=== PATIENT | female | born 1965 | race African-American/Black ===

== ENCOUNTER 2019-10-18 11:24 | Inpatient (IN) ==
[2019-10-18 13:04] LABS: Basophils % 0.2 % (0.0-0.8); Hematocrit 41.1 VOL% (35.7-47.0); Hemoglobin 12.9 GM/DL (12.0-16.0); Immature Granulocytes % 0.9 %; Immature Granulocytes Absolute 0.05 #; Lymphocytes # 1.2 10*3/uL (1.4-4.0); Lymphocytes % 22.5 % (21.3-54.2); Mean Corpuscular HGB Conc 31.4 GM/DL (32-36); Mean Corpuscular Volume 95.1 FL (87-102); Mean Platelet Volume 10.5 FL (9.6-12.0); Monocytes % 4.2 % (1.7-12.7); Neutrophils % 72.2 % (38.7-73.9); Platelet Count 247 T/CUMM (130-400); Red Blood Count 4.32 MC/CUMM (3.8-5.5); Red Cell Distribution Width 15.2 % (9.3-17.3); White Blood Count 5.3 T/CUMM (4-12)
[2019-10-18 13:16] LABS: Alanine Aminotransferase 40 U/L (13-56); Albumin 3.4 G/DL (3.4-5.0); Alkaline Phosphatase 69 U/L (45-117); Aspartate Amino Transferase 47 U/L (0-37); Blood Urea Nitrogen 10 MG/DL (7-18); Calcium 8.8 MG/DL (8.5-10.1); Estimated Glom Filtration Rate 80 ML/MIN; Glucose 102 MG/DL (74-106); Osmolality,Calculated 271.8 MOS/KG (273-304); Total Protein 8.9 G/DL (6.4-8.3); Troponin I < 0.015 NG/ML (0.00-0.045)
[2019-10-18] MEDS ORDERED: SODIUM CHLORIDE 0.9% 1,000 ML IV STA (13:35)
[2019-10-18] MEDS ORDERED: LACTATED RINGERS 1,000 ML IV ONE (13:47)
[2019-10-18] MEDS ORDERED: DEXTROSE 10% 250 ML BAG IV PRN (14:29)
[2019-10-18] MEDS ORDERED: ONDANSETRON 4 MG/2 ML VIAL IV PRN (14:29)
[2019-10-18] MEDS ORDERED: GLUCAGON 1 MG VIAL IM PRN (14:29)
[2019-10-18] MEDS ORDERED: DOCUSATE SODIUM 100 MG CAPSULE PO PRN (14:29)
[2019-10-18] MEDS ORDERED: guaiFENesin/DM ER 600-30 MG TABLET PO PRN (14:29)
[2019-10-18] MEDS ORDERED: POTASSIUM CHLORIDE 20 MEQ TABLET PO STA (14:43)
[2019-10-18 15:16] LABS: ABG Base Excess 3.2 MMOL/L (-2.5-2.5); ABG Oxygen Saturation 84.8 % (95-100); ABG PH 7.468 (7.35-7.45); ABG PO2 49.6 MM HG (80-95); ABG TCO2 23.5 MMOL/L (23-27)
[2019-10-18] MEDS: PANTOPRAZOLE 40 MG TABLET PO SCH (18:00)
[2019-10-18] MEDS: SODIUM CHLORIDE 0.9% 1,000 ML IV SCH (19:09)
[2019-10-18] MEDS: ATORVASTATIN 10 MG TABLET PO SCH (22:42)
[2019-10-18] MEDS: ACETAMINOPHEN 325 MG TABLET PO PRN (22:42)
[2019-10-18] MEDS: ENOXAPARIN 40 MG/0.4 ML SYRINGE SUBCUT SCH (22:43)
[2019-10-19 05:09] LABS: Basophils % 0.2 % (0.0-0.8); Hemoglobin 11.1 GM/DL (12.0-16.0); Immature Granulocytes % 0.9 %; Immature Granulocytes Absolute 0.05 #; Lymphocytes # 2.2 10*3/uL (1.4-4.0); Lymphocytes % 39.9 % (21.3-54.2); Mean Corpuscular HGB Conc 31.7 GM/DL (32-36); Mean Corpuscular Volume 93.3 FL (87-102); Mean Platelet Volume 9.7 FL (9.6-12.0); Monocytes % 4.8 % (1.7-12.7); Neutrophils % 54.2 % (38.7-73.9); Platelet Count 239 T/CUMM (130-400); Red Blood Count 3.75 MC/CUMM (3.8-5.5); Red Cell Distribution Width 15.3 % (9.3-17.3); White Blood Count 5.4 T/CUMM (4-12)
[2019-10-19 05:28] LABS: Albumin 2.7 G/DL (3.4-5.0); Bilirubin,Total 0.5 MG/DL (0.2-1.0); Osmolality,Calculated 278.4 MOS/KG (273-304); Total Protein 7.4 G/DL (6.4-8.3)
[2019-10-19] MEDS: SODIUM CHLORIDE 0.9% 1,000 ML IV SCH ×2 (06:25→09:27)
[2019-10-19] MEDS ORDERED: POTASSIUM CHLORIDE 20 MEQ TABLET PO ONE (07:53)
[2019-10-19] MEDS: cefTRIAXone 1,000 MG in SYRINGE 1 EACH IV SCH (09:00)
[2019-10-19] MEDS ORDERED: AZITHROMYCIN INJ 500 MG in SODIUM CHLORIDE 0.9% 250 ML IV SCH (09:00)
[2019-10-19] MEDS: PANTOPRAZOLE 40 MG TABLET PO SCH (09:24)
[2019-10-19] MEDS: METOPROLOL TARTRATE 25 MG TABLET PO SCH (09:24)
[2019-10-19] MEDS: ASPIRIN EC 81 MG TABLET PO SCH (09:24)
[2019-10-19] MEDS: LISINOPRIL/HCTZ 20-12.5 MG TABLET PO SCH (09:24)
[2019-10-19] MEDS: ENOXAPARIN 40 MG/0.4 ML SYRINGE SUBCUT SCH (20:58)
[2019-10-19] MEDS: ATORVASTATIN 10 MG TABLET PO SCH (20:58)
[2019-10-20] MEDS ORDERED: VECURONIUM 10 MG VIAL IV ONE (01:55)
[2019-10-20] MEDS ORDERED: ETOMIDATE 20 MG/10 ML VIAL IV ONE (01:56)
[2019-10-20] MEDS: SODIUM CHLORIDE 0.9% 1,000 ML IV SCH ×5 (02:03→19:00)
[2019-10-20 03:58] LABS: Basophils % 0.1 % (0.0-0.8); Hematocrit 34.9 VOL% (35.7-47.0); Hemoglobin 11.1 GM/DL (12.0-16.0); Immature Granulocytes % 1.2 %; Immature Granulocytes Absolute 0.08 #; Lymphocytes % 30.2 % (21.3-54.2); Mean Corpuscular HGB Conc 31.8 GM/DL (32-36); Mean Corpuscular Volume 96.1 FL (87-102); Mean Platelet Volume 9.4 FL (9.6-12.0); Monocytes % 5.2 % (1.7-12.7); Neutrophils % 63.3 % (38.7-73.9); Platelet Count 302 T/CUMM (130-400); Red Blood Count 3.63 MC/CUMM (3.8-5.5); Red Cell Distribution Width 15.2 % (9.3-17.3); White Blood Count 6.8 T/CUMM (4-12)
[2019-10-20 04:23] LABS: Albumin 2.6 G/DL (3.4-5.0); Bilirubin,Total 0.4 MG/DL (0.2-1.0); Calcium 8.4 MG/DL (8.5-10.1); Osmolality,Calculated 279.4 MOS/KG (273-304); Total Protein 7.5 G/DL (6.4-8.3)
[2019-10-20 06:24] LABS: Apearance,Urine Slightly Hazy (Clear); Bacteria,Urine Occasional /HPF (Few); Bilirubin,Urine Negative (Negative); Blood, Urine Small mg/dL (Negative); Glucose,Urine (UA) Negative (Negative); Ketones,Urine 20 mg/dL (Negative); Mucus,Urine Occasional /LPF (Occasional); Nitrite,Urine Negative (Negative); Protein,Urine 30 MG/DL; RBC,Urine 8 /HPF (0-4); Squamous Epithelial Cell,Urine Occasional /HPF (0-10); Urine Color Yellow (Yellow); Urine Specific Gravity 1.017 (1.001-1.035); Urine Urobilinogen < 2.0 EU/DL (0.2-1.0); WBC,Urine 157 /HPF (0-6)
[2019-10-20] MEDS: ASPIRIN EC 81 MG TABLET PO SCH (09:25)
[2019-10-20] MEDS: PANTOPRAZOLE 40 MG TABLET PO SCH (09:25)
[2019-10-20] MEDS: METOPROLOL TARTRATE 25 MG TABLET PO SCH (09:25)
[2019-10-20] MEDS: LISINOPRIL/HCTZ 20-12.5 MG TABLET PO SCH (09:25)
[2019-10-20] MEDS: cefTRIAXone 1,000 MG in SYRINGE 1 EACH IV SCH (09:26)
[2019-10-20] MEDS: AZITHROMYCIN 250 MG TABLET PO SCH (09:26)
[2019-10-20] MEDS: POTASSIUM CHLORIDE 20 MEQ TABLET PO PRN ×4 (09:26→17:39)
[2019-10-20] MEDS: hydrALAZINE 20 MG/1 ML VIAL IV PRN (17:39)
[2019-10-20] MEDS: ACETAMINOPHEN 325 MG TABLET PO PRN (20:00)
[2019-10-20] MEDS: ATORVASTATIN 10 MG TABLET PO SCH (21:14)
[2019-10-20] MEDS: ENOXAPARIN 40 MG/0.4 ML SYRINGE SUBCUT SCH (21:14)
[2019-10-20] MEDS: ZALEPLON 5 MG CAPSULE PO PRN (21:14)
[2019-10-21 04:48] LABS: Basophils % 0.2 % (0.0-0.8); Hematocrit 35.2 VOL% (35.7-47.0); Hemoglobin 11.2 GM/DL (12.0-16.0); Immature Granulocytes % 1.7 %; Immature Granulocytes Absolute 0.14 #; Lymphocytes # 1.7 10*3/uL (1.4-4.0); Lymphocytes % 20.6 % (21.3-54.2); Mean Corpuscular HGB Conc 31.8 GM/DL (32-36); Mean Corpuscular Volume 95.1 FL (87-102); Mean Platelet Volume 9.4 FL (9.6-12.0); Monocytes % 4.5 % (1.7-12.7); Platelet Count 364 T/CUMM (130-400); Red Cell Distribution Width 15.1 % (9.3-17.3); White Blood Count 8.4 T/CUMM (4-12)
[2019-10-21 04:58] LABS: Albumin 2.3 G/DL (3.4-5.0); Bilirubin,Total 0.7 MG/DL (0.2-1.0); Calcium 8.6 MG/DL (8.5-10.1); Osmolality,Calculated 273.7 MOS/KG (273-304); Total Protein 7.3 G/DL (6.4-8.3)
[2019-10-21] MEDS: SODIUM CHLORIDE 0.9% 1,000 ML IV SCH ×2 (05:34→08:10)
[2019-10-21] MEDS: PANTOPRAZOLE 40 MG TABLET PO SCH (08:03)
[2019-10-21] MEDS: LISINOPRIL/HCTZ 20-12.5 MG TABLET PO SCH (08:03)
[2019-10-21] MEDS: cefTRIAXone 1,000 MG in SYRINGE 1 EACH IV SCH (08:03)
[2019-10-21] MEDS: METOPROLOL TARTRATE 25 MG TABLET PO SCH (08:03)
[2019-10-21] MEDS: ASPIRIN EC 81 MG TABLET PO SCH (08:03)
[2019-10-21] MEDS: AZITHROMYCIN 250 MG TABLET PO SCH (08:06)
[2019-10-21] MEDS: hydrALAZINE 20 MG/1 ML VIAL IV PRN (08:23)
[2019-10-21] MEDS ORDERED: FUROSEMIDE 40 MG/4 ML VIAL IV ONE (14:00)
[2019-10-21] MEDS: ATORVASTATIN 10 MG TABLET PO SCH (20:01)
[2019-10-21] MEDS: ENOXAPARIN 40 MG/0.4 ML SYRINGE SUBCUT SCH (20:01)
[2019-10-21] MEDS: HYDROXYCHLOROQUINE 200 MG TABLET PO SCH (20:02)
[2019-10-22 04:40] LABS: Basophils % 0.1 % (0.0-0.8); Hematocrit 37.8 VOL% (35.7-47.0); Hemoglobin 12.5 GM/DL (12.0-16.0); Immature Granulocytes % 1.5 %; Immature Granulocytes Absolute 0.13 #; Lymphocytes # 1.7 10*3/uL (1.4-4.0); Lymphocytes % 19.4 % (21.3-54.2); Mean Corpuscular HGB Conc 33.1 GM/DL (32-36); Mean Corpuscular Volume 90.6 FL (87-102); Mean Platelet Volume 9.8 FL (9.6-12.0); Monocytes % 4.5 % (1.7-12.7); Neutrophils % 74.5 % (38.7-73.9); Platelet Count 455 T/CUMM (130-400); Red Blood Count 4.17 MC/CUMM (3.8-5.5); Red Cell Distribution Width 15.1 % (9.3-17.3)
[2019-10-22 05:04] LABS: Osmolality,Calculated 277.5 MOS/KG (273-304)
[2019-10-22] MEDS: AZITHROMYCIN 250 MG TABLET PO SCH (09:30)
[2019-10-22] MEDS: LISINOPRIL/HCTZ 20-12.5 MG TABLET PO SCH (09:30)
[2019-10-22] MEDS: HYDROXYCHLOROQUINE 200 MG TABLET PO SCH ×2 (09:30→20:14)
[2019-10-22] MEDS: ASPIRIN EC 81 MG TABLET PO SCH (09:30)
[2019-10-22] MEDS: PANTOPRAZOLE 40 MG TABLET PO SCH (09:30)
[2019-10-22] MEDS: cefTRIAXone 1,000 MG in SYRINGE 1 EACH IV SCH (09:45)
[2019-10-22] MEDS: POTASSIUM CHLORIDE 20 MEQ TABLET PO PRN ×2 (12:37→18:29)
[2019-10-22] MEDS: ENOXAPARIN 40 MG/0.4 ML SYRINGE SUBCUT SCH (20:14)
[2019-10-22] MEDS: ATORVASTATIN 10 MG TABLET PO SCH (20:14)
[2019-10-22] MEDS: ACETAMINOPHEN 325 MG TABLET PO PRN (20:20)
[2019-10-22] MEDS: ZALEPLON 5 MG CAPSULE PO PRN (22:59)
[2019-10-23 01:53] LABS: Basophils % 0.2 % (0.0-0.8); Hematocrit 35.5 VOL% (35.7-47.0); Hemoglobin 11.6 GM/DL (12.0-16.0); Immature Granulocytes % 2.1 %; Lymphocytes # 1.7 10*3/uL (1.4-4.0); Lymphocytes % 17.2 % (21.3-54.2); Mean Corpuscular HGB Conc 32.7 GM/DL (32-36); Mean Corpuscular Volume 92.2 FL (87-102); Mean Platelet Volume 9.5 FL (9.6-12.0); Monocytes % 4.6 % (1.7-12.7); Neutrophils % 75.9 % (38.7-73.9); Platelet Count 458 T/CUMM (130-400); Red Blood Count 3.85 MC/CUMM (3.8-5.5); White Blood Count 9.6 T/CUMM (4-12)
[2019-10-23 02:11] LABS: Calcium 8.9 MG/DL (8.5-10.1)
[2019-10-23] MEDS: POTASSIUM CHLORIDE 20 MEQ TABLET PO PRN (04:45)
[2019-10-23] MEDS: PANTOPRAZOLE 40 MG TABLET PO SCH (09:00)
[2019-10-23] MEDS: HYDROXYCHLOROQUINE 200 MG TABLET PO SCH ×2 (09:00→20:20)
[2019-10-23] MEDS: LISINOPRIL/HCTZ 20-12.5 MG TABLET PO SCH (09:00)
[2019-10-23] MEDS: cefTRIAXone 1,000 MG in SYRINGE 1 EACH IV SCH (09:00)
[2019-10-23] MEDS: ASPIRIN EC 81 MG TABLET PO SCH (09:00)
[2019-10-23] MEDS: ZINC SULFATE 220 MG CAPSULE PO SCH (09:01)
[2019-10-23] MEDS: AZITHROMYCIN 250 MG TABLET PO SCH (09:01)
[2019-10-23] MEDS: ACETAMINOPHEN 325 MG TABLET PO PRN (09:02)
[2019-10-23] MEDS: ATORVASTATIN 10 MG TABLET PO SCH (20:20)
[2019-10-23] MEDS: ENOXAPARIN 40 MG/0.4 ML SYRINGE SUBCUT SCH (20:20)
[2019-10-24] MEDS: PANTOPRAZOLE 40 MG TABLET PO SCH (08:25)
[2019-10-24] MEDS: cefTRIAXone 1,000 MG in SYRINGE 1 EACH IV SCH (08:25)
[2019-10-24] MEDS: ASPIRIN EC 81 MG TABLET PO SCH (08:25)
[2019-10-24] MEDS: LISINOPRIL/HCTZ 20-12.5 MG TABLET PO SCH (08:25)
[2019-10-24] MEDS: HYDROXYCHLOROQUINE 200 MG TABLET PO SCH ×2 (11:25→20:18)
[2019-10-24] MEDS: FUROSEMIDE 40 MG/4 ML VIAL IV SCH ×2 (14:30→17:48)
[2019-10-24] MEDS: LINEZOLID INJ 600 MG in PREMIX 1 EACH IV SCH ×2 (14:30→23:01)
[2019-10-24] MEDS ORDERED: SODIUM CHLORIDE 0.9% 500 ML IV ONE (19:21)
[2019-10-24] MEDS: ATORVASTATIN 10 MG TABLET PO SCH (20:18)
[2019-10-24] MEDS: ENOXAPARIN 40 MG/0.4 ML SYRINGE SUBCUT SCH (20:18)
[2019-10-25] MEDS ORDERED: NOREPINEPHRINE 8 MG in SODIUM CHLORIDE 0.9% 242 ML IV PRN (00:06)
[2019-10-25 06:43] LABS: Basophils % 0.3 % (0.0-0.8); Eosinophils # 0.1 10*3/uL (0.0-0.87); Eosinophils % 0.6 % (0.00-10.9); Hematocrit 34.2 VOL% (35.7-47.0); Hemoglobin 10.8 GM/DL (12.0-16.0); Immature Granulocytes Absolute 0.28 #; Lymphocytes # 1.6 10*3/uL (1.4-4.0); Lymphocytes % 16.4 % (21.3-54.2); Mean Corpuscular HGB Conc 31.6 GM/DL (32-36); Mean Corpuscular Volume 94.2 FL (87-102); Mean Platelet Volume 10.2 FL (9.6-12.0); Monocytes % 5.9 % (1.7-12.7); Neutrophils % 73.8 % (38.7-73.9); Platelet Count 497 T/CUMM (130-400); Red Blood Count 3.63 MC/CUMM (3.8-5.5); Red Cell Distribution Width 15.1 % (9.3-17.3); White Blood Count 9.5 T/CUMM (4-12)
[2019-10-25 07:04] LABS: Bilirubin,Total 0.8 MG/DL (0.2-1.0); Calcium 8.9 MG/DL (8.5-10.1); Ferritin 470.7 ng/ml (8-252); Osmolality,Calculated 271.2 MOS/KG (273-304); Total Protein 7.5 G/DL (6.4-8.3)
[2019-10-25 07:29] LABS: Anisocytosis 1+; Band Neutrophils 3 % (0-10); Lymphocytes 19 % (20-55); Macrocytosis 1+; Platelet Estimate Normal; Segmented Neutrophils 68 % (50-85); Total Cells Counted 100
[2019-10-25] MEDS: POTASSIUM CHLORIDE 20 MEQ TABLET PO PRN ×2 (09:20→17:11)
[2019-10-25] MEDS: PANTOPRAZOLE 40 MG TABLET PO SCH (09:20)
[2019-10-25] MEDS: HYDROXYCHLOROQUINE 200 MG TABLET PO SCH ×2 (09:20→21:06)
[2019-10-25] MEDS: ZINC SULFATE 220 MG CAPSULE PO SCH (09:21)
[2019-10-25] MEDS: ASPIRIN EC 81 MG TABLET PO SCH (09:21)
[2019-10-25] MEDS: cefTRIAXone 1,000 MG in SYRINGE 1 EACH IV SCH (09:44)
[2019-10-25] MEDS: LISINOPRIL/HCTZ 20-12.5 MG TABLET PO SCH (11:21)
[2019-10-25] MEDS: LINEZOLID INJ 600 MG in PREMIX 1 EACH IV SCH (11:25)
[2019-10-25] MEDS: ACETAMINOPHEN 325 MG TABLET PO PRN (18:00)
[2019-10-25] MEDS: ATORVASTATIN 10 MG TABLET PO SCH (21:06)
[2019-10-25] MEDS: ENOXAPARIN 100 MG/ML SYRINGE SUBCUT SCH (21:06)
[2019-10-26] MEDS: LINEZOLID INJ 600 MG in PREMIX 1 EACH IV SCH ×2 (01:20→12:40)
[2019-10-26 04:16] LABS: ABG Base Excess 2.2 MMOL/L (-2.5-2.5); ABG HCO3 26.3 MMOL/L (20-26); ABG Oxygen Saturation 93.1 % (95-100); ABG PCO2 38.7 MM HG (35-48); ABG PH 7.441 (7.35-7.45); ABG PO2 69.5 MM HG (80-95); ABG TCO2 23.6 MMOL/L (23-27)
[2019-10-26 07:25] LABS: Basophils % 0.3 % (0.0-0.8); Hematocrit 35.4 VOL% (35.7-47.0); Hemoglobin 11.2 GM/DL (12.0-16.0); Immature Granulocytes % 1.7 %; Immature Granulocytes Absolute 0.18 #; Lymphocytes # 1.7 10*3/uL (1.4-4.0); Lymphocytes % 16.3 % (21.3-54.2); Mean Corpuscular HGB Conc 31.6 GM/DL (32-36); Mean Corpuscular Volume 94.4 FL (87-102); Mean Platelet Volume 9.8 FL (9.6-12.0); Monocytes % 4.7 % (1.7-12.7); Platelet Count 507 T/CUMM (130-400); Red Blood Count 3.75 MC/CUMM (3.8-5.5); Red Cell Distribution Width 14.9 % (9.3-17.3); White Blood Count 10.5 T/CUMM (4-12)
[2019-10-26 07:37] LABS: Calcium 8.8 MG/DL (8.5-10.1); Osmolality,Calculated 270.1 MOS/KG (273-304)
[2019-10-26] MEDS: cefTRIAXone 1,000 MG in SYRINGE 1 EACH IV SCH (08:47)
[2019-10-26] MEDS: HYDROXYCHLOROQUINE 200 MG TABLET PO SCH (08:48)
[2019-10-26] MEDS: ASPIRIN EC 81 MG TABLET PO SCH (08:48)
[2019-10-26] MEDS: PANTOPRAZOLE 40 MG TABLET PO SCH (08:48)
[2019-10-26] MEDS: LISINOPRIL/HCTZ 20-12.5 MG TABLET PO SCH (09:14)
[2019-10-26] MEDS ORDERED: LORazepam 1 MG TABLET PO ONE (14:39)
[2019-10-26] MEDS ORDERED: LORazepam 1 MG TABLET ONE (14:43)
[2019-10-26] MEDS ORDERED: FUROSEMIDE 40 MG/4 ML VIAL IV ONE (16:03)
[2019-10-26] MEDS: ENOXAPARIN 100 MG/ML SYRINGE SUBCUT SCH (17:00)
[2019-10-26] MEDS: ATORVASTATIN 10 MG TABLET PO SCH (22:40)
[2019-10-27] MEDS: LINEZOLID INJ 600 MG in PREMIX 1 EACH IV SCH ×3 (00:43→23:24)
[2019-10-27] MEDS: ENOXAPARIN 100 MG/ML SYRINGE SUBCUT SCH ×2 (05:49→18:44)
[2019-10-27 07:06] LABS: Basophils % 0.3 % (0.0-0.8); Hematocrit 33.8 VOL% (35.7-47.0); Hemoglobin 10.8 GM/DL (12.0-16.0); Immature Granulocytes % 1.6 %; Immature Granulocytes Absolute 0.18 #; Lymphocytes # 1.6 10*3/uL (1.4-4.0); Lymphocytes % 14.5 % (21.3-54.2); Mean Corpuscular Volume 93.4 FL (87-102); Monocytes % 4.7 % (1.7-12.7); Neutrophils % 78.9 % (38.7-73.9); Platelet Count 535 T/CUMM (130-400); Red Blood Count 3.62 MC/CUMM (3.8-5.5); White Blood Count 11.2 T/CUMM (4-12)
[2019-10-27] MEDS: ZINC SULFATE 220 MG CAPSULE PO SCH (08:47)
[2019-10-27] MEDS: ASPIRIN EC 81 MG TABLET PO SCH (08:47)
[2019-10-27] MEDS: PANTOPRAZOLE 40 MG TABLET PO SCH (08:48)
[2019-10-27] MEDS: LISINOPRIL/HCTZ 20-12.5 MG TABLET PO SCH (09:37)
[2019-10-27 18:17] LABS: Calcium 9.4 MG/DL (8.5-10.1); Osmolality,Calculated 266.4 MOS/KG (273-304)
[2019-10-27] MEDS: ATORVASTATIN 10 MG TABLET PO SCH (21:20)
[2019-10-28 04:04] LABS: Basophils % 0.2 % (0.0-0.8); Hematocrit 30.9 VOL% (35.7-47.0); Hemoglobin 9.8 GM/DL (12.0-16.0); Immature Granulocytes % 1.7 %; Immature Granulocytes Absolute 0.17 #; Lymphocytes # 1.5 10*3/uL (1.4-4.0); Lymphocytes % 15.7 % (21.3-54.2); Mean Corpuscular HGB Conc 31.7 GM/DL (32-36); Mean Corpuscular Volume 95.7 FL (87-102); Monocytes % 4.7 % (1.7-12.7); Neutrophils % 77.7 % (38.7-73.9); Platelet Count 488 T/CUMM (130-400); Red Blood Count 3.23 MC/CUMM (3.8-5.5); Red Cell Distribution Width 15.7 % (9.3-17.3); White Blood Count 9.8 T/CUMM (4-12)
[2019-10-28 06:04] LABS: Calcium 9.1 MG/DL (8.5-10.1); Osmolality,Calculated 265.5 MOS/KG (273-304)
[2019-10-28] MEDS: ENOXAPARIN 100 MG/ML SYRINGE SUBCUT SCH ×2 (06:13→17:00)
[2019-10-28] MEDS: LISINOPRIL/HCTZ 20-12.5 MG TABLET PO SCH (09:10)
[2019-10-28] MEDS: ASPIRIN EC 81 MG TABLET PO SCH (09:10)
[2019-10-28] MEDS: PANTOPRAZOLE 40 MG TABLET PO SCH (09:10)
[2019-10-28] MEDS: LINEZOLID INJ 600 MG in PREMIX 1 EACH IV SCH (11:24)
[2019-10-28] MEDS ORDERED: FUROSEMIDE 40 MG/4 ML VIAL IV ONE (15:09)
[2019-10-28] MEDS: ATORVASTATIN 10 MG TABLET PO SCH (19:45)
[2019-10-28] MEDS ORDERED: LINEZOLID INJ 600 MG in PREMIX 1 EACH IV SCH (23:00)
[2019-10-29] MEDS: LINEZOLID INJ 600 MG in PREMIX 1 EACH IV SCH (00:06)
[2019-10-29] MEDS: ENOXAPARIN 100 MG/ML SYRINGE SUBCUT SCH ×2 (05:00→20:32)
[2019-10-29 05:50] LABS: Allen Test Positive; Pt O2 Delivery Device Other
[2019-10-29 05:51] LABS: ABG Base Excess 3.9 MMOL/L (-2.5-2.5); ABG HCO3 27.8 MMOL/L (20-26); ABG Oxygen Saturation 96.1 % (95-100); ABG PCO2 42.6 MM HG (35-48); ABG PH 7.433 (7.35-7.45); ABG PO2 80.4 MM HG (80-95); ABG TCO2 25.9 MMOL/L (23-27)
[2019-10-29 06:44] LABS: Basophils % 0.2 % (0.0-0.8); Hematocrit 32.2 VOL% (35.7-47.0); Hemoglobin 10.2 GM/DL (12.0-16.0); Immature Granulocytes % 1.9 %; Immature Granulocytes Absolute 0.16 #; Lymphocytes # 1.7 10*3/uL (1.4-4.0); Lymphocytes % 20.6 % (21.3-54.2); Mean Corpuscular HGB Conc 31.7 GM/DL (32-36); Mean Corpuscular Volume 93.9 FL (87-102); Mean Platelet Volume 9.9 FL (9.6-12.0); Monocytes % 5.8 % (1.7-12.7); Neutrophils % 71.5 % (38.7-73.9); Platelet Count 548 T/CUMM (130-400); Red Blood Count 3.43 MC/CUMM (3.8-5.5); Red Cell Distribution Width 14.7 % (9.3-17.3); White Blood Count 8.3 T/CUMM (4-12)
[2019-10-29 07:09] LABS: Calcium 8.8 MG/DL (8.5-10.1); Osmolality,Calculated 270.1 MOS/KG (273-304)
[2019-10-29] MEDS: ASPIRIN EC 81 MG TABLET PO SCH (09:58)
[2019-10-29] MEDS: LISINOPRIL/HCTZ 20-12.5 MG TABLET PO SCH (09:58)
[2019-10-29] MEDS: ATORVASTATIN 10 MG TABLET PO SCH (20:31)
[2019-10-30] MEDS: LISINOPRIL/HCTZ 20-12.5 MG TABLET PO SCH (09:30)
[2019-10-30] MEDS: ASPIRIN EC 81 MG TABLET PO SCH (09:30)
[2019-10-30] MEDS: ENOXAPARIN 100 MG/ML SYRINGE SUBCUT SCH ×2 (09:30→21:15)
[2019-10-30] MEDS: ATORVASTATIN 10 MG TABLET PO SCH (21:15)
[2019-10-31 05:58] LABS: Basophils % 0.4 % (0.0-0.8); Hematocrit 31.7 VOL% (35.7-47.0); Hemoglobin 10.2 GM/DL (12.0-16.0); Immature Granulocytes % 2.1 %; Immature Granulocytes Absolute 0.15 #; Lymphocytes # 1.9 10*3/uL (1.4-4.0); Lymphocytes % 26.2 % (21.3-54.2); Mean Corpuscular HGB Conc 32.2 GM/DL (32-36); Mean Corpuscular Volume 93.5 FL (87-102); Mean Platelet Volume 9.6 FL (9.6-12.0); Monocytes % 8.8 % (1.7-12.7); Neutrophils % 62.5 % (38.7-73.9); Platelet Count 530 T/CUMM (130-400); Red Blood Count 3.39 MC/CUMM (3.8-5.5); Red Cell Distribution Width 14.6 % (9.3-17.3); White Blood Count 7.3 T/CUMM (4-12)
[2019-10-31 06:05] LABS: Osmolality,Calculated 269.4 MOS/KG (273-304)
[2019-10-31] MEDS: ENOXAPARIN 100 MG/ML SYRINGE SUBCUT SCH ×2 (08:40→20:56)
[2019-10-31] MEDS: ASPIRIN EC 81 MG TABLET PO SCH (08:40)
[2019-10-31] MEDS: ACETAMINOPHEN 325 MG TABLET PO PRN (20:56)
[2019-10-31] MEDS: ATORVASTATIN 10 MG TABLET PO SCH (20:56)
[2019-11-01 04:20] LABS: ABG Base Excess 4.9 MMOL/L (-2.5-2.5); ABG HCO3 28.7 MMOL/L (20-26); ABG Oxygen Saturation 93.6 % (95-100); ABG PH 7.444 (7.35-7.45); ABG TCO2 26.4 MMOL/L (23-27); Allen Test Positive
[2019-11-01] MEDS: ASPIRIN EC 81 MG TABLET PO SCH (10:16)
[2019-11-01] MEDS: ENOXAPARIN 100 MG/ML SYRINGE SUBCUT SCH ×2 (10:16→21:39)
[2019-11-01] MEDS: ATORVASTATIN 10 MG TABLET PO SCH (21:39)
[2019-11-02] MEDS: ENOXAPARIN 100 MG/ML SYRINGE SUBCUT SCH ×2 (08:17→20:10)
[2019-11-02] MEDS: ASPIRIN EC 81 MG TABLET PO SCH (08:17)
[2019-11-02] MEDS: ACETAMINOPHEN 325 MG TABLET PO PRN (11:43)
[2019-11-02] MEDS: ATORVASTATIN 10 MG TABLET PO SCH (20:10)
[2019-11-03] MEDS: ASPIRIN EC 81 MG TABLET PO SCH (08:28)
[2019-11-03] MEDS ORDERED: ENOXAPARIN 60 MG/0.6 ML SYRINGE SUBCUT SCH (09:00)
[2019-11-03 13:57] VITALS: BP 139/69
== END 2019-11-03 16:55 | disposition home health service (06) | DRG 177 ==
LOC: N.ED 11:24 → N.EDINP 14:29 → SUATTDRO 14:29 → SUPCPDRO 14:29 → N.EDINP 15:45 → N.2E 17:13 → N.CC 10-20 01:54 → N.2W 10-28 17:35
PROVIDERS: ADMIT Family Medicine; ATTEND Internal Medicine